=== PATIENT | male | born 1950 | race African-American/Black ===

== ENCOUNTER 2024-09-04 14:16 | Inpatient (IN) ==
--- NOTE | 2024-09-04 14:41 | Emergency Department Note ---
Impression & Plan Near syncope, Dizziness, Chills, Tachycardia ED Provider Note NAME: LUIS TITUS AGE: 73 SEX: M : 1950 ARRIVES VIA: Ambulance INFORMANT: [Patient][ems, nursing] ED PROVIDER(S): [Mikey Kruse MD] CHIEF COMPLAINT: Chills, near syncope HISTORY OF PRESENT ILLNESS: The patient is a 73-year-old male who felt fine this morning. He was at a store shopping and had chills and felt very faint. He was helped by staff, he never lost consciousness. No trauma or fall. He noticed some nausea. He was brought by ambulance for evaluation. There was no chest pain prehospital, there have been no episodes of cough or congestion. He has not had urinary complaints. He has not had rash. No abdominal pain or chest pain. No palpitations. No recent sick contacts. PMHx/PSHx/Social Hx: See Below PHYSICAL EXAM: GENERAL: Patient is in no acute distress. HEENT: No acute trauma, normocephalic atraumatic, mucous membranes moist, no nasal congestion. NECK: No stridor, no adenopathy, no meningismus, trachea is midline. LUNGS: Clear to auscultation bilaterally, no wheeze, no rhonchi, breath sounds equal. Breath sounds diminished bilaterally HEART: Without murmurs gallops or rubs, regular rate and rhythm. ABDOMEN: Soft, nontender, no peritonitis. EXTREMITIES: No cyanosis, full range of motion of all the joints without pain or difficulty. NEUROLOGIC: Oriented x 3, no acute motor or sensory deficits, no focal weakness. SKIN: No jaundice, no diaphoresis. DIFFERENTIAL DIAGNOSIS: Sepsis or bacteremia, viral illness, UTI, dehydration, dysrhythmia, among others. EMERGENCY DEPARTMENT PROCEDURES: MEDICAL DECISION MAKING: There is no leukocytosis or worrisome anemia. There is a normal platelet count. No coagulopathy. There is some elevation to the creatinine 1.65, this could be consistent with dehydration or some chronic renal insufficiency. No old values available for comparison. Lactic acid level was not elevated making sepsis less likely. Magnesium was somewhat low at 1.6. No worrisome liver enzyme elevation. ECG initially showed a sinus rhythm with a rate of 80. No ST elevation. Cardiac enzyme testing x 1 is not consistent with acute cardiac injury. Repeat troponin value is pending. Procalcitonin level was elevated consistent with potential bacterial infection. Urinalysis did not show findings of infection. Respiratory bio fire was negative. Chest x-ray did not show pneumonia. Chest CT did not show PE or pneumonia. Repeat ECG showed a sinus tachycardia, no obvious ischemia. The patient became tachycardic during his stay, he complained of dizziness when he tried to sit up. At 1 point, he had some left-sided chest pain. Patient was given 1.5 L of IV saline. He received IV Zofran, IV morphine, IV magnesium and IV cefepime. At this point, the cause for his complaints is unclear. Bacteremia is a consideration, dysrhythmia is a consideration. Given the circumstances and his complaints, given his persistent tachycardia and complaints of dizziness, hospitalization is indicated for further workup. I spoke with the patient and case management, the on-call hospitalist was consulted. Prior/Outside records/notes reviewed: Today's EMS notes describing his presentation and transport to this hospital. ECG per my interpretation: Indication was near syncope. The ECG shows a sinus rhythm with a first-degree AV block. The rate is 81. There is no acute ST ovation, no PVCs but the QTc is 367. Repeat ECG per my interpretation: Indication was tachycardia. The ECG shows what appears to be a sinus tachycardia with a first-degree AV block. The rate was 112. There is no ST elevation, no PVCs. The QTc was 374. Compared to the earlier ECG, the rate has increased by about 40 bpm. Repeat ECG per my interpretation: Indication was chest pain. The ECG shows a sinus tachycardia with a first-degree AV block. The rate was 109. There was no ST elevation, no PVCs. The QTc was 404. Continuous Cardiac Monitoring per my interpretation: An order was placed for continuous cardiac monitoring. The monitor shows a rate of 85 with sinus rhythm with a first-degree block. Imaging/x-ray results per my interpretation: Chest x-ray does not show pneumonia or CHF. Chronic Medical/Social conditions affecting care: Advanced age Care/Management discussed with: Case management, the on-call hospitalist. Level of care consideration(s): After review of the information above and other included data: --I believe the patient requires escalation of care to admission DISPOSITION: Admission Past Med/Surg History Problem List (Updated 09/04/24 @ 19:15 by Mikey Kruse MD) Tachycardia (Acute) Chills (Acute) Dizziness (Acute) Near syncope (Acute) Bladder neck contracture Renal lesion Prostate cancer screening (Chronic) Smell and taste disorder Microsmia Insomnia HLD (hyperlipidemia) Asthma HTN (hypertension) Vitamin D deficiency Narcolepsy Medical History Atrial fibrillation Surgical History (Updated 04/11/24 @ 09:57 by Mari Aponte LPN) Hx of appendectomy Family History (Updated 04/11/24 @ 10:00 by Mari Aponte LPN) Father Lung cancer Mother Liver cancer Sister Diabetes Denies family history of Sudden Ovarian cancer Prostate cancer Heart disease Breast cancer Social History Smoking Status: Never smoker Second Hand Exposure: No; Do You Dip or Chew Tobacco: No; Hx Alcohol Use: Yes Alcohol Intake Frequency: Monthly or Less Hx Substance Use: No Preferred Language: Syriac Beliefs That Will Affect Care: None marital status: / Current Living Situation: Alone current occupational status: retired How many Children do You have: 5 Feels Safe at Home: Yes Childhood Exposure to Second-Hand Smoke: No Diet: regular caffeine: Yes Dental Care, Regularly: Yes Physical Activity Frequency: Daily Seatbelt Use: always Sunscreen Use: Yes Assistive Devices: Denture - Upper, Denture - Lower and Glasses Allergies Allergies Allergy/AdvReac Type Severity Reaction Status Date / Time No Known Allergies Allergy Verified 08/19/24 10:35 Home Meds Home Medications Medication Instructions Recorded Confirmed loratadine 10 mg capsule (Allergy 10 mg PO UD 09/04/24 09/04/24 Relief (loratadine)) solriamfetol 75 mg tablet 75 mg PO UD 09/04/24 09/04/24 Previous Rx's Medication Instructions Recorded apixaban 5 mg tablet (Eliquis) 5 mg PO BID 90 days #180 tabs 04/11/24 ergocalciferol (vitamin D2) 1,250 1,250 mcg PO Q7D 90 days #13 caps 04/11/24 mcg (50,000 unit) capsule lisinopril 10 mg tablet 10 mg PO DAILY #90 tabs 04/11/24 mometasone-formoterol HFA 50 mcg-5 2 puff inhalation Q12H 90 days #39 04/11/24 mcg/actuation aerosol inhaler grams (Dulera) montelukast 10 mg tablet 10 mg PO DAILY #90 tabs 04/11/24 pravastatin 20 mg tablet 20 mg PO DAILY #90 tabs 04/11/24 trazodone 100 mg tablet 100 mg PO DAILY #90 tabs 04/11/24 fluticasone propionate 50 2 spray intranasal DAILY #16 grams 07/31/24 mcg/actuation nasal spray,suspension (Flonase Allergy Relief) Results & Data (ED) Vital Signs Vital Signs - 24 hr 09/04/24 14:31 09/04/24 14:31 09/04/24 14:31 Temperature Temperature Source Pulse Rate Pulse Rate [Apical] Pulse Rate from SpO2 Sensor Pulse Rhythm Pulse Rhythm [Apical] Pulse Strength Pulse Strength [Apical] Respiratory Rate Respiratory Effort / Characteristics Respiratory Depth Respiratory Pattern Blood Pressure 121/81 121/81 121/81 Blood Pressure [Right Arm] Blood Pressure Mean 91 91 91 Blood Pressure Mean [Right Arm] Blood Pressure Position [Right Arm] Pulse Oximetry Oxygen Delivery Method Sepsis Recent Fever Within 48 Hours Sepsis New/Unexplained Change in Mental Status Sepsis Action Taken by Nursing 09/04/24 14:31 09/04/24 14:31 09/04/24 14:31 Temperature Temperature Source Pulse Rate Pulse Rate [Apical] Pulse Rate from SpO2 Sensor Pulse Rhythm Pulse Rhythm [Apical] Pulse Strength Pulse Strength [Apical] Respiratory Rate Respiratory Effort / Characteristics Respiratory Depth Respiratory Pattern Blood Pressure 121/81 121/81 121/81 Blood Pressure [Right Arm] Blood Pressure Mean 91 91 91 Blood Pressure Mean [Right Arm] Blood Pressure Position [Right Arm] Pulse Oximetry Oxygen Delivery Method Sepsis Recent Fever Within 48 Hours Sepsis New/Unexplained Change in Mental Status Sepsis Action Taken by Nursing 09/04/24 14:31 09/04/24 14:31 09/04/24 14:31 Temperature Temperature Source Pulse Rate Pulse Rate [Apical] Pulse Rate from SpO2 Sensor Pulse Rhythm Pulse Rhythm [Apical] Pulse Strength Pulse Strength [Apical] Respiratory Rate Respiratory Effort / Characteristics Respiratory Depth Respiratory Pattern Blood Pressure 121/81 121/81 121/81 Blood Pressure [Right Arm] Blood Pressure Mean 91 91 91 Blood Pressure Mean [Right Arm] Blood Pressure Position [Right Arm] Pulse Oximetry Oxygen Delivery Method Sepsis Recent Fever Within 48 Hours Sepsis New/Unexplained Change in Mental Status Sepsis Action Taken by Nursing 09/04/24 14:39 09/04/24 14:45 09/04/24 14:45 Temperature 36.8 C 36.8 C Temperature Source Oral Oral Pulse Rate 85 89 Pulse Rate [Apical] 89 Pulse Rate from SpO2 Sensor 84 Pulse Rhythm Regular Pulse Rhythm [Apical] Regular Pulse Strength Normal Pulse Strength [Apical] Normal Respiratory Rate 26 H 18 18 Respiratory Effort / Characteristics Non-Labored Spontaneous Non-Labored Spontaneous Respiratory Depth Normal Normal Respiratory Pattern Regular Regular Blood Pressure 122/80 Blood Pressure [Right Arm] 122/80 Blood Pressure Mean 94 Blood Pressure Mean [Right Arm] 94 Blood Pressure Position [Right Arm] Semi-fowlers Pulse Oximetry 95 94 94 Oxygen Delivery Method Room Air Room Air Sepsis Recent Fever Within 48 Hours No Sepsis New/Unexplained Change in Mental Status Yes Sepsis Action Taken by Nursing No Action Required 09/04/24 14:45 09/04/24 14:45 09/04/24 14:51 Temperature Temperature Source Pulse Rate 89 63 90 Pulse Rate [Apical] Pulse Rate from SpO2 Sensor 84 90 Pulse Rhythm Regular Pulse Rhythm [Apical] Pulse Strength Pulse Strength [Apical] Respiratory Rate 18 25 H 27 H Respiratory Effort / Characteristics Respiratory Depth Respiratory Pattern Blood Pressure Blood Pressure [Right Arm] Blood Pressure Mean Blood Pressure Mean [Right Arm] Blood Pressure Position [Right Arm] Pulse Oximetry 94 98 97 Oxygen Delivery Method Room Air Sepsis Recent Fever Within 48 Hours Sepsis New/Unexplained Change in Mental Status Sepsis Action Taken by Nursing 09/04/24 15:09 09/04/24 15:18 09/04/24 15:30 Temperature Temperature Source Pulse Rate 95 H 95 H Pulse Rate [Apical] Pulse Rate from SpO2 Sensor 95 H Pulse Rhythm Pulse Rhythm [Apical] Pulse Strength Pulse Strength [Apical] Respiratory Rate 26 H 24 Respiratory Effort / Characteristics Respiratory Depth Respiratory Pattern Blood Pressure 158/109 H Blood Pressure [Right Arm] Blood Pressure Mean 127 Blood Pressure Mean [Right Arm] Blood Pressure Position [Right Arm] Pulse Oximetry 96 Oxygen Delivery Method Sepsis Recent Fever Within 48 Hours Sepsis New/Unexplained Change in Mental Status Sepsis Action Taken by Nursing 09/04/24 15:30 09/04/24 15:30 09/04/24 15:30 Temperature Temperature Source Pulse Rate Pulse Rate [Apical] Pulse Rate from SpO2 Sensor Pulse Rhythm Pulse Rhythm [Apical] Pulse Strength Pulse Strength [Apical] Respiratory Rate Respiratory Effort / Characteristics Respiratory Depth Respiratory Pattern Blood Pressure 158/109 H 158/109 H 158/109 H Blood Pressure [Right Arm] Blood Pressure Mean 127 127 127 Blood Pressure Mean [Right Arm] Blood Pressure Position [Right Arm] Pulse Oximetry Oxygen Delivery Method Sepsis Recent Fever Within 48 Hours Sepsis New/Unexplained Change in Mental Status Sepsis Action Taken by Nursing 09/04/24 15:30 09/04/24 15:30 09/04/24 15:33 Temperature Temperature Source Pulse Rate 103 H Pulse Rate [Apical] Pulse Rate from SpO2 Sensor 104 H Pulse Rhythm Pulse Rhythm [Apical] Pulse Strength Pulse Strength [Apical] Respiratory Rate 27 H Respiratory Effort / Characteristics Respiratory Depth Respiratory Pattern Blood Pressure 158/109 H 158/109 H Blood Pressure [Right Arm] Blood Pressure Mean 127 127 Blood Pressure Mean [Right Arm] Blood Pressure Position [Right Arm] Pulse Oximetry 100 Oxygen Delivery Method Sepsis Recent Fever Within 48 Hours Sepsis New/Unexplained Change in Mental Status Sepsis Action Taken by Nursing 09/04/24 15:51 09/04/24 16:00 09/04/24 16:00 Temperature Temperature Source Pulse Rate 117 H 110 H Pulse Rate [Apical] Pulse Rate from SpO2 Sensor 116 H 110 H Pulse Rhythm Pulse Rhythm [Apical] Pulse Strength Pulse Strength [Apical] Respiratory Rate 31 H 25 H Respiratory Effort / Characteristics Respiratory Depth Respiratory Pattern Blood Pressure 152/109 H Blood Pressure [Right Arm] Blood Pressure Mean 130 Blood Pressure Mean [Right Arm] Blood Pressure Position [Right Arm] Pulse Oximetry 97 98 Oxygen Delivery Method Sepsis Recent Fever Within 48 Hours Sepsis New/Unexplained Change in Mental Status Sepsis Action Taken by Nursing 09/04/24 16:00 09/04/24 16:00 09/04/24 16:00 Temperature Temperature Source Pulse Rate Pulse Rate [Apical] Pulse Rate from SpO2 Sensor Pulse Rhythm Pulse Rhythm [Apical] Pulse Strength Pulse Strength [Apical] Respiratory Rate Respiratory Effort / Characteristics Respiratory Depth Respiratory Pattern Blood Pressure 152/109 H 152/109 H 152/109 H Blood Pressure [Right Arm] Blood Pressure Mean 130 130 130 Blood Pressure Mean [Right Arm] Blood Pressure Position [Right Arm] Pulse Oximetry Oxygen Delivery Method Sepsis Recent Fever Within 48 Hours Sepsis New/Unexplained Change in Mental Status Sepsis Action Taken by Nursing 09/04/24 16:00 09/04/24 16:00 09/04/24 16:00 Temperature Temperature Source Pulse Rate Pulse Rate [Apical] Pulse Rate from SpO2 Sensor Pulse Rhythm Pulse Rhythm [Apical] Pulse Strength Pulse Strength [Apical] Respiratory Rate Respiratory Effort / Characteristics Respiratory Depth Respiratory Pattern Blood Pressure 152/109 H 152/109 H 152/109 H Blood Pressure [Right Arm] Blood Pressure Mean 130 130 130 Blood Pressure Mean [Right Arm] Blood Pressure Position [Right Arm] Pulse Oximetry Oxygen Delivery Method Sepsis Recent Fever Within 48 Hours Sepsis New/Unexplained Change in Mental Status Sepsis Action Taken by Nursing 09/04/24 16:00 09/04/24 16:00 09/04/24 16:00 Temperature Temperature Source Pulse Rate Pulse Rate [Apical] Pulse Rate from SpO2 Sensor Pulse Rhythm Pulse Rhythm [Apical] Pulse Strength Pulse Strength [Apical] Respiratory Rate Respiratory Effort / Characteristics Respiratory Depth Respiratory Pattern Blood Pressure 152/109 H 152/109 H 152/109 H Blood Pressure [Right Arm] Blood Pressure Mean 130 130 130 Blood Pressure Mean [Right Arm] Blood Pressure Position [Right Arm] Pulse Oximetry Oxygen Delivery Method Sepsis Recent Fever Within 48 Hours Sepsis New/Unexplained Change in Mental Status Sepsis Action Taken by Nursing 09/04/24 16:11 09/04/24 16:12 09/04/24 16:24 Temperature Temperature Source Pulse Rate 112 H 114 H 114 H Pulse Rate [Apical] Pulse Rate from SpO2 Sensor 114 H 114 H Pulse Rhythm Pulse Rhythm [Apical] Pulse Strength Pulse Strength [Apical] Respiratory Rate 25 H 20 Respiratory Effort / Characteristics Respiratory Depth Respiratory Pattern Blood Pressure Blood Pressure [Right Arm] Blood Pressure Mean Blood Pressure Mean [Right Arm] Blood Pressure Position [Right Arm] Pulse Oximetry 97 98 Oxygen Delivery Method Sepsis Recent Fever Within 48 Hours Sepsis New/Unexplained Change in Mental Status Sepsis Action Taken by Nursing 09/04/24 16:27 09/04/24 16:30 09/04/24 16:30 Temperature Temperature Source Pulse Rate 119 H Pulse Rate [Apical] Pulse Rate from SpO2 Sensor 118 H Pulse Rhythm Pulse Rhythm [Apical] Pulse Strength Pulse Strength [Apical] Respiratory Rate 25 H Respiratory Effort / Characteristics Respiratory Depth Respiratory Pattern Blood Pressure 150/88 H 150/88 H Blood Pressure [Right Arm] Blood Pressure Mean 92 92 Blood Pressure Mean [Right Arm] Blood Pressure Position [Right Arm] Pulse Oximetry 98 Oxygen Delivery Method Sepsis Recent Fever Within 48 Hours Sepsis New/Unexplained Change in Mental Status Sepsis Action Taken by Nursing 09/04/24 16:30 09/04/24 16:30 09/04/24 16:30 Temperature Temperature Source Pulse Rate Pulse Rate [Apical] Pulse Rate from SpO2 Sensor Pulse Rhythm Pulse Rhythm [Apical] Pulse Strength Pulse Strength [Apical] Respiratory Rate Respiratory Effort / Characteristics Respiratory Depth Respiratory Pattern Blood Pressure 150/88 H 150/88 H 150/88 H Blood Pressure [Right Arm] Blood Pressure Mean 92 92 92 Blood Pressure Mean [Right Arm] Blood Pressure Position [Right Arm] Pulse Oximetry Oxygen Delivery Method Sepsis Recent Fever Within 48 Hours Sepsis New/Unexplained Change in Mental Status Sepsis Action Taken by Nursing 09/04/24 16:30 09/04/24 16:30 09/04/24 16:30 Temperature Temperature Source Pulse Rate Pulse Rate [Apical] Pulse Rate from SpO2 Sensor Pulse Rhythm Pulse Rhythm [Apical] Pulse Strength Pulse Strength [Apical] Respiratory Rate Respiratory Effort / Characteristics Respiratory Depth Respiratory Pattern Blood Pressure 150/88 H 150/88 H 150/88 H Blood Pressure [Right Arm] Blood Pressure Mean 92 92 92 Blood Pressure Mean [Right Arm] Blood Pressure Position [Right Arm] Pulse Oximetry Oxygen Delivery Method Sepsis Recent Fever Within 48 Hours Sepsis New/Unexplained Change in Mental Status Sepsis Action Taken by Nursing 09/04/24 16:45 09/04/24 16:51 09/04/24 16:57 Temperature Temperature Source Pulse Rate 118 H 119 H 115 H Pulse Rate [Apical] Pulse Rate from SpO2 Sensor 118 H 119 H 115 H Pulse Rhythm Pulse Rhythm [Apical] Pulse Strength Pulse Strength [Apical] Respiratory Rate 27 H 23 28 H Respiratory Effort / Characteristics Respiratory Depth Respiratory Pattern Blood Pressure Blood Pressure [Right Arm] Blood Pressure Mean Blood Pressure Mean [Right Arm] Blood Pressure Position [Right Arm] Pulse Oximetry 98 98 97 Oxygen Delivery Method Sepsis Recent Fever Within 48 Hours Sepsis New/Unexplained Change in Mental Status Sepsis Action Taken by Nursing 09/04/24 17:00 09/04/24 17:18 09/04/24 17:21 Temperature Temperature Source Pulse Rate 117 H 113 H Pulse Rate [Apical] Pulse Rate from SpO2 Sensor 120 H 113 H Pulse Rhythm Pulse Rhythm [Apical] Pulse Strength Pulse Strength [Apical] Respiratory Rate 17 29 H Respiratory Effort / Characteristics Respiratory Depth Respiratory Pattern Blood Pressure 123/94 123/94 131/112 H Blood Pressure [Right Arm] Blood Pressure Mean 99 103 118 Blood Pressure Mean [Right Arm] Blood Pressure Position [Right Arm] Pulse Oximetry 90 96 Oxygen Delivery Method Sepsis Recent Fever Within 48 Hours Sepsis New/Unexplained Change in Mental Status Sepsis Action Taken by Long Term Medications Current Medication List: was personally reviewed by me Laboratory Data Attestation: I reviewed the patient's lab results. 09/04/24 15:02 09/04/24 15:02 Lab Results 09/04/24 09/04/24 Range/Units 15:02 16:01 WBC 6.63 (4.8-10.8) K/ul RBC 4.43 L (4.70-6.10) M/uL Hgb 13.7 L (14.0-18.0) g/dl Hct 40.1 L (42.0-52.0) % MCV 90.5 (80.0-100.0) fL MCH 30.9 (25.0-34.0) pg MCHC 34.2 (32.0-36.0) g/dL RDW Std Deviation 40.3 (36.4-46.3) fL RDW Coeff of Semaj 12.3 (11.5-14.5) % Plt Count 159 (130-400) K/uL MPV 10.1 (9.4-12.4) fL Immature Gran % (Auto) 0.8 % Neut % (Auto) 92.0 % Lymph % (Auto) 5.1 % Sullivan % (Auto) 1.2 % Eos % (Auto) 0.6 % Baso % (Auto) 0.3 % Neut # (Auto) 6.10 (1.40-6.50) K/uL Lymph # (Auto) 0.34 L (1.20-3.40) K/uL Sullivan # (Auto) 0.08 L (0.11-0.59) K/uL Eos # (Auto) 0.04 (0.00-0.50) K/uL Baso # (Auto) 0.02 (0.00-0.20) K/uL Immature Gran # (Auto) 0.05 (0.01-0.20) K/uL PT 11.3 (9.0-12.0) Seconds INR 1.0 (0.9-1.1) APTT 23 (21-31) Seconds PTT Ratio 0.9 Sodium 139 (136-145) mmol/L Potassium 4.5 (3.5-5.1) mmol/L Chloride 103 (98-107) mmol/L Carbon Dioxide 29 (21-32) mmol/L Anion Gap 7 (3-11) BUN 20 (6-23) mg/dl Creatinine 1.65 H (0.6-1.4) mg/dl Est Cr Clr Drug Dosing 45.4 ml/min eGFR 43.57 BUN/Creatinine Ratio 12.1 (10-20) Glucose 107 H (70-99(Fasting)) mg/dl Lactate 1.4 (0.4-2.0) mmol/L Calcium 9.5 (8.6-10.3) mg/dl Magnesium 1.6 L (1.7-2.4) mg/dl Total Bilirubin 1.1 H (0.2-1.0) mg/dl Direct Bilirubin 0.3 H (0-0.2) mg/dl AST 18 (13-39) U/L ALT 17 (7-52) U/L Alkaline Phosphatase 78 (34-104) U/L Troponin I High Sens 2.9 (0-20) pg/ml Total Protein 7.2 (6.0-8.3) gm/dl Albumin 4.4 (3.4-5.0) gm/dl Procalcitonin 1.09 H (0-0.5) ng/ml Urine Color Yellow Urine Appearance Clear (Clear) Urine pH 5.5 (4.5-7.5) Ur Specific [place] 1.014 (1.000-1.030) Urine Protein 1+ H (Negative) Urine Glucose (UA) Negative (Negative) Urine Ketones Trace H (Negative) Urine Blood Negative (Negative) Urine Nitrite Negative (Negative) Urine Bilirubin Negative (Negative) Urine Urobilinogen Negative (Negative) Ur Leukocyte Esterase Negative (Negative) Urine WBC (Auto) 0-5 (0-5) /hpf Urine RBC (Auto) 6-10 H (0-2) /hpf U Hyaline Cast (Auto) 0-2 (0-2) /lpf U Epithel Cells (Auto) 0-2 (0-2) /hpf Urine Bacteria (Auto) None Seen (None Seen) Urine Sperm Present A (None Prsent) Adenovirus (PCR) Not Detected (NotDetected) B. pertussis DNA (PCR) Not Detected (NotDetected) B.parapertussis DNA PCR Not Detected (NotDetected) C. pneumoniae DNA (PCR) Not Detected (NotDetected) Coronavirus OC43 (PCR) Not Detected (NotDetected) Coronavirus HKU1 (PCR) Not Detected (NotDetected) Coronavirus 229E (PCR) Not Detected (NotDetected) SARS-CoV-2 (PCR) Not Detected (NotDetected) Coronavirus NL63 (PCR) Not Detected (NotDetected) Human Metapneumovir PCR Not Detected (NotDetected) Influenza Type A (PCR) Not Detected (NotDetected) Influenza Type B (PCR) Not Detected (NotDetected) M. pneumoniae (PCR) Not Detected (NotDetected) Parainfluenza 1 (PCR) Not Detected (NotDetected) Parainfluenza 2 (PCR) Not Detected (NotDetected) Parainfluenza 3 (PCR) Not Detected (NotDetected) Parainfluenza 4 (PCR) Not Detected (NotDetected) RSV (PCR) Not Detected (NotDetected) Entero/Rhino (PCR) Not Detected (NotDetected) Administered Medications Discontinued Medications Sodium Chloride (Nss) 1,000 mls @ 999 mls/hr IV .Q1H1M CHAMP Stop: 09/04/24 15:45 Last Infusion: 09/04/24 16:18 Dose: Infused Documented By: Admin: 09/04/24 15:06 Dose: 999 mls/hr Documented By: Cefepime HCl (Maxipime 2000mg) 2,000 mg in 20 mls @ 5 mls/min IV NOW STA; Protocol Stop: 09/04/24 14:41 Last Admin: 09/04/24 15:45 Dose: 5 mls/min Documented By: DUY Magnesium Sulfate/Dextrose (Magnesium Sulfate / D5w) 1 gm in 100 mls @ 100 mls/hr IV NOW STA Stop: 09/04/24 16:56 Last Admin: 09/04/24 16:05 Dose: 100 mls/hr Documented By: DUY Ioversol (Optiray 320 125ml) 78 ml IV ONCE ONE Stop: 09/04/24 17:57 Last Admin: 09/04/24 17:57 Dose: 78 ml Documented By: PLW Ondansetron HCl (Ondansetron Inj 2 Mg/Ml 2 Ml Vial) 4 mg IV NOW STA Stop: 09/04/24 14:39 Last Admin: 09/04/24 15:06 Dose: 4 mg Documented By: MSG Imaging Data Radiologist's Impression: Chest X-Ray 09/04/24 14:38 XR chest 1V portable CLINICAL HISTORY: Sepsis COMPARISON STUDY: None FINDINGS: Heart size and pulmonary vasculature are normal. No effusion, consolidation, or pneumothorax. IMPRESSION: No acute findings. ACT 112: Negative or not required by law. Electronically signed by: Juwan Babcock M.D. 09/04/2024 2:51 PM Chest CTA 09/04/24 17:37 EXAM: CT Angiography Chest With Intravenous Contrast INDICATION: Sudden onset of dizziness, chills and lightheadedness. TECHNIQUE: Axial computed tomographic angiography images of the chest with intravenous contrast. Sagittal and coronal reformatted images were created and reviewed. This CT exam was performed using one or more of the following dose reduction techniques: automated exposure control, adjustment of the mA and/or kV according to patient size, and/or use of iterative reconstruction technique. MIP reconstructed images were created and reviewed. CONTRAST: 78ml of Optiray 320 was administered intravenously. COMPARISON: No relevant prior studies available. FINDINGS: Pulmonary arteries: No abnormality noted. No pulmonary embolism. Aorta: No acute change noted. No thoracic aortic aneurysm or dissection. Lungs and pleural spaces: No abnormality noted. No mass. No consolidation. No significant effusion. No pneumothorax. Heart: No abnormality noted. No cardiomegaly. No significant pericardial effusion. No evidence of RV dysfunction. Thyroid: There is a 1.4 x 1.0 cm right thyroid nodule. No further assessment required. Bones/joints: No acute or atypical chronic changes. Soft tissues: No abnormality noted. Lymph nodes: No abnormality noted. No enlarged lymph nodes. Kidneys and ureters: Simple bilateral renal cysts noted. No follow-up necessary. No stones or hydronephrosis. There is mild symmetrical stranding around the visualized upper portion of each kidney. No visible urinary gas. IMPRESSION: 1. No pulmonary embolism or aortic dissection. 2. No pulmonary infiltrate or pleural effusion. 3. There is mild symmetrical stranding about the upper portion of both kidneys. Correlate with urinalysis for cy pyelonephritis. ACT 112: N/A Electronically signed by Elza Trevino 09-04-2024 6:13 PM Discharge Plan Visit Data Chief Complaint: Syncope (Near Syncope) Stated Complaint: syncope ED Provider: Mikey Kruse Discharge Problem: Near syncope, Dizziness, Chills, Tachycardia Patient Disposition: Admitted As Inpatient Condition: Fair Forms Stand Alone Forms: My [facility] Prescriptions Prescriptions: No Action Eliquis 5 mg tablet 5 mg PO BID 90 Days Qty: 180 3RF ergocalciferol (vitamin D2) 1,250 mcg (50,000 unit) capsule 1,250 mcg PO Q7D 90 Days Qty: 13 3RF lisinopril 10 mg tablet 10 mg PO DAILY Qty: 90 3RF Dulera 50-5 mcg/actuation HFA aerosol inhaler 2 puff inhalation Q12H 90 Days Qty: 39 3RF montelukast 10 mg tablet 10 mg PO DAILY Qty: 90 3RF pravastatin 20 mg tablet 20 mg PO DAILY Qty: 90 3RF trazodone 100 mg tablet 100 mg PO DAILY Qty: 90 3RF fluticasone propionate [Flonase Allergy Relief] 50 mcg/actuation spray,suspension 2 spray intranasal DAILY Qty: 16 1RF Rx Instructions: administer into each nostril 2 puffs each day for six weeks. Allergy Relief (loratadine) 10 mg capsule 10 mg PO UD Rx Instructions: 10 mg po daily. pt isnt sure if this medication solriamfetol 75 mg tablet 75 mg PO UD Rx Instructions: 75 mg po daily. Per pt, he ran out and couldnt get a refill Referrals Referrals: Gabriele Adams, [Primary Care Provider] -
--- NOTE | 2024-09-04 14:52 | XRay Report ---
XR chest 1V portable CLINICAL HISTORY: Sepsis COMPARISON STUDY: None FINDINGS: Heart size and pulmonary vasculature are normal. No effusion, consolidation, or pneumothora x. IMPRESSION: No acute findings. ACT 112: Negative or not required by law. Electronically signed by: Juwan Babcock M.D. 09/04/2024 2:51 PM
[2024-09-04] MEDS: SODIUM CHLORIDE 0.9% 1,000 ML IV SCH (15:06)
[2024-09-04] MEDS: ONDANSETRON INJ 2 MG/ML 2 ML VIAL IV STA (15:06)
[2024-09-04 15:32] LABS: Hematocrit (blood only) 40.1 % (42.0-52.0); Hemoglobin 13.7 g/dl (14.0-18.0); Mean Corpuscular Hemoglobin 30.9 pg (25.0-34.0); Mean Corpuscular Hgb Conc 34.2 g/dL (32.0-36.0); Mean Corpuscular Volume 90.5 fL (80.0-100.0); Mean Platelet Volume 10.1 fL (9.4-12.4); Platelet Count 159 K/uL (130-400); RDW Coefficient of Variation 12.3 % (11.5-14.5); RDW Standard Deviation 40.3 fL (36.4-46.3); Red Blood Count 4.43 M/uL (4.70-6.10); White Blood Count 6.63 K/ul (4.8-10.8)
[2024-09-04] MEDS: CEFEPIME 2000MG 2,000 MG/20 ML SYR IV STA (15:45)
[2024-09-04 15:54] LABS: Albumin Level 4.4 gm/dl (3.4-5.0); BUN Creatinine Ratio 12.1 (10-20); Basophils # (auto) 0.02 K/uL (0.00-0.20); Basophils % (auto) 0.3 %; Bilirubin Direct 0.3 mg/dl (0-0.2); Bilirubin,Total 1.1 mg/dl (0.2-1.0); Calcium 9.5 mg/dl (8.6-10.3); Creatinine Clr Calc Pharmacy 45.4 ml/min; Eosinophils # (auto) 0.04 K/uL (0.00-0.50); Eosinophils % (auto) 0.6 %; Immature Granulocytes # (auto) 0.05 K/uL (0.01-0.20); Immature Granulocytes % (auto) 0.8 %; Lymphocytes # (auto) 0.34 K/uL (1.20-3.40); Lymphocytes % (auto) 5.1 %; Magnesium 1.6 mg/dl (1.7-2.4); Monocytes # (auto) 0.08 K/uL (0.11-0.59); Monocytes % (auto) 1.2 %; Potassium 4.5 mmol/L (3.5-5.1); Total Protein 7.2 gm/dl (6.0-8.3)
[2024-09-04 16:00] LABS: Troponin I High Sensitivity 2.9 pg/ml (0-20)
[2024-09-04 16:02] LABS: Partial Thromboplastin Ratio 0.9; Partial Thromboplastin Time 23 Seconds (21-31); Prothrombin Time 11.3 Seconds (9.0-12.0)
[2024-09-04] MEDS: MAGNESIUM SULFATE / D5W 1 GM/100 ML BAG IV STA (16:05)
[2024-09-04 16:30] LABS: Adenovirus PCR Not Detected (NotDetected); Bordetella parapertussis PCR Not Detected (NotDetected); Bordetella pertussis PCR Not Detected (NotDetected); Chlamydia pneumoniae PCR Not Detected (NotDetected); Coronavirus 229E PCR Not Detected (NotDetected); Coronavirus CoV-2 (COVID19)PCR Not Detected (NotDetected); Coronavirus HKU1 PCR Not Detected (NotDetected); Coronavirus NL63 PCR Not Detected (NotDetected); Coronavirus OC43PCR Not Detected (NotDetected); Human Metapneumovirus PCR Not Detected (NotDetected); Influenza A PCR Not Detected (NotDetected); Influenza B PCR Not Detected (NotDetected); Mycoplasma pneumoniae PCR Not Detected (NotDetected); Parainfluenza Virus 1 PCR Not Detected (NotDetected); Parainfluenza Virus 2 PCR Not Detected (NotDetected); Parainfluenza Virus 3 PCR Not Detected (NotDetected); Parainfluenza Virus 4 PCR Not Detected (NotDetected); Respiratory Syncytial VirusPCR Not Detected (NotDetected); Rhinovirus/Enterovirus PCR Not Detected (NotDetected)
[2024-09-04 17:04] LABS: Appearance Urine Clear (Clear); Bacteria Urine Automated None Seen (None Seen); Bilirubin Urine Negative (Negative); Blood Urine Negative (Negative); Cast Urine Automated 0-2 /lpf (0-2); Color Urine Yellow; Epithelial Cell Urine Auto 0-2 /hpf (0-2); Glucose Urine UA Negative (Negative); Ketones Urine Trace (Negative); Leukocyte Esterase Urine Negative (Negative); Nitrite Urine Negative (Negative); Protein Urine 1+ (Negative); Specific Gravity Urine 1.014 (1.000-1.030); Sperm Urine Present (None Prsent); Urobilinogen Urine Negative (Negative); WBC Urine Automated 0-5 /hpf (0-5); pH Urine 5.5 (4.5-7.5)
[2024-09-04] MEDS: OPTIRAY 320 125ml IV ONE (17:57)
--- NOTE | 2024-09-04 18:13 | CT Scan Report ---
EXAM: CT Angiography Chest With Intravenous Contrast INDICATION: Sudden onset of dizziness, chills and lightheadedness. TECHNIQUE: Axial computed tomographic angiography images of the chest with intravenous contrast. Sagittal and coronal reformatted images were created and reviewed. This CT exam was performed using one or more of the following dose reduction techniques: automated exposure control, adjustment of the mA and/or kV according to patient size, and/or use of iterative reconstruction technique. MIP reconstructed images were created and reviewed. CONTRAST: 78ml of Optiray 320 was administered intravenously. COMPARISON: No relevant prior studies available. FINDINGS: Pulmonary arteries: No abnormality noted. No pulmonary embolism. Aorta: No acute change noted. No thoracic aortic aneurysm or dissection. Lungs and pleural spaces: No abnormality noted. No mass. No consolidation. No significant effusion. No pneumothorax. Heart: No abnormality noted. No cardiomegaly. No significant pericardial effusion. No evidence of RV dysfunction. Thyroid: There is a 1.4 x 1.0 cm right thyroid nodule. No further assessment required. Bones/joints: No acute or atypical chronic changes. Soft tissues: No abnormality noted. Lymph nodes: No abnormality noted. No enlarged lymph nodes. Kidneys and ureters: Simple bilateral renal cysts noted. No follow-up necessary. No stones or hydronephrosis. There is mild symmetrical stranding around the visualized upper portion of each kidney. No visible urinary gas. IMPRESSION: 1. No pulmonary embolism or aortic dissection. 2. No pulmonary infiltrate or pleural effusion. 3. There is mild symmetrical stranding about the upper portion of both kidneys. Correlate with urinalysis for cy pyelonephritis. ACT 112: N/A Electronically signed by Elza Trevino 09-04-2024 6:13 PM
--- NOTE | 2024-09-04 18:39 | History & Physical Report ---
Date of Service September 04, 2024 Assessment & Plan (1) Near syncope: (2) Elevated serum creatinine: (3) Tachycardia: (4) BPH w urinary obs/LUTS: Plan This patient is a 73-year-old male with a history of HTN, asthma, SHANNAN, excessive daytime drowsiness, diet-controlled DM2, insomnia, HLD, allergic rhinitis, BPH, who presents to the ER with acute onset of chills, nausea, emesis and lightheadedness. He reports he was sitting waiting for his car to be serviced at [facility] when the symptoms began. He had to lay himself down on the ground and ambulance was called. Initially in the ER, his heart rate was in the 80s with a first-degree AV block but then he became tachycardic which was sinus. His blood pressures were actually mildly elevated he was afebrile. He did have a cystoscopy 2 days ago for BPH and was prescribed tamsulosin but has not yet started it. He reports he did not take any antibiotics before or after the cystoscopy procedure. He denies any worsening of his current lower urinary tract symptoms-he denies dysuria or hematuria, no abdominal pain. He denies he adache or sore throat, no cough or chest pain but does feel at times like it is hard to breathe. He denies diarrhea, constipation, blood in the stool. He had nausea but no vomiting. He is admitted for further workup for presyncope, possible early sepsis with a /bacteremia source given recent cystoscopy. #Presyncope/chills/sinus tachycardia/nausea/possible early sepsis-no significant ECG abnormalities, trop neg x 2. Afebrile here but may be in early stages of sepsis given chills, tachycardia, some tachypnea. No source of infection but could be bacteremia from recent cystoscopy. 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 Pt has never been told he has CKD that he recalls. 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 Making urine. Mag low at 1.6 on arrival and replaced with 1 gram IV mag in ED -hydrate with IVFs x 2 L -follow BMP -ok to continue home lisinopril -follow Mag level in AM #Paroxysmal atrial fibrillation-in NSR here -continue ELiquis -monitor on tele #HTN/HLD-no acute issues, BPs somewhat elevated -continue home lisinopril, pravastatin #Asthma/allergic rhinitis-no acute issues but some SOB, no wheezing on exam -continue maintenance inhalers, albuterol prn -continue home claritin, flonase #Insomnia/SHANNAN/daytime somnolence -no acute issues, recently ran out of stimulant med -continue trazadone -continue CPAP #Diet-controlled DM2-no acute issues, not on meds at home -check A1C in AM DVT prophylaxis-Eliquis Disposition-admit to PCU History of Present Illness Chief Complaint: Chills, lightheadedness Primary Care Provider: Gabriele Adams, DO This patient is a 73-year-old male with a history of HTN, asthma, SHANNAN, excessive daytime drowsiness, diet-controlled DM2, insomnia, HLD, allergic rhinitis, BPH, who presents to the ER with acute onset of chills, nausea, emesis and lightheadedness. He reports he was sitting waiting for his car to be serviced at [employer] when the symptoms began. He had to lay himself down on the ground and ambulance was called. Initially in the ER, his heart rate was in the 80s with a first-degree AV block but then he became tachycardic which was sinus. His blood pressures were actually mildly elevated he was afebrile. He did have a cystoscopy 2 days ago for BPH and was prescribed tamsulosin but has not yet started it. He reports he did not take any antibiotics before or after the cy stoscopy procedure. He denies any worsening of his current lower urinary tract symptoms-he denies dysuria or hematuria, no abdominal pain. He denies headache or sore throat, no cough or chest pain but does feel at times like it is hard to breathe. He denies diarrhea, constipation, blood in the stool. He had nausea but no vomiting. In the ER, the ECG was without ischemic changes, his magnesium was mildly low and this was replaced. His UA showed RBCs but no other signs of infection. He was given IV cefepime, blood cultures were drawn, procalcitonin was elevated, he was given IV Zofran and IV magnesium. His troponin was negative and his creatinine was elevated at 1.65. He is unaware of any history of CKD. He will be admitted for further workup for presyncope, possible early sepsis w ith a /bacteremia source given recent cystoscopy. Allergies Allergy/AdvReac Type Severity Reaction Status Date / Time No Known Allergies Allergy Verified 08/19/24 10:35 Home Medications Medication Instructions Recorded Confirmed Type apixaban 5 mg tablet (Eliquis) 5 mg PO BID 90 days #180 tabs 04/11/24 09/04/24 Rx ergocalciferol (vitamin D2) 1,250 1,250 mcg PO Q7D 90 days #13 caps 04/11/24 09/04/24 Rx mcg (50,000 unit) capsule lisinopril 10 mg tablet 10 mg PO DAILY #90 tabs 04/11/24 09/04/24 Rx mometasone-formoterol HFA 50 mcg-5 2 puff inhalation Q12H 90 days #39 04/11/24 09/04/24 Rx mcg/actuation aerosol inhaler grams (Dulera) montelukast 10 mg tablet 10 mg PO DAILY #90 tabs 04/11/24 09/04/24 Rx pravastatin 20 mg tablet 20 mg PO DAILY #90 tabs 04/11/24 09/04/24 Rx trazodone 100 mg tablet 100 mg PO DAILY #90 tabs 04/11/24 09/04/24 Rx fluticasone propionate 50 2 spray intranasal DAILY #16 grams 07/31/24 09/04/24 Rx mcg/actuation nasal spray,suspension (Flonase Allergy Relief) loratadine 10 mg capsule (Allergy 10 mg PO UD 09/04/24 09/04/24 History Relief (loratadine)) solriamfetol 75 mg tablet 75 mg PO UD 09/04/24 09/04/24 History Past Med/Surg History Problem List Elevated serum creatinine Tachycardia (Acute) Chills (Acute) Dizziness (Acute) Near syncope (Acute) Bladder neck contracture Renal lesion Prostate cancer screening (Chronic) Smell and taste disorder Microsmia Insomnia HLD (hyperlipidemia) Asthma HTN (hypertension) Vitamin D deficiency Narcolepsy Medical History Atrial fibrillation Surgical History Hx of appendectomy Family History Father Lung cancer Mother Liver cancer Sister Diabetes Denies family history of Sudden Ovarian cancer Prostate cancer Heart disease Breast cancer Social History Smoking Status: Never smoker Second Hand Exposure: No; Do You Dip or Chew Tobacco: No; Hx Alcohol Use: Yes Alcohol Intake Frequency: Monthly or Less Hx Substance Use: No Preferred Language: Eritrean Communication Ability: Effective First Line Supervisor Required: No Beliefs That Will Affect Care: None marital status: / Current Living Situation: Alone current occupational status: retired How many Children do You have: 5 Other Information That Helps Us Care for You: No Feels Safe at Home: Yes Safety Concerns: Feels Safe At This Time Childhood Exposure to Second-Hand Smoke: No Diet: regular caffeine: Yes Dental Care, Regularly: Yes Physical Activity Frequency: Daily Seatbelt Use: always Sunscreen Use: Yes Assistive Devices: Glasses Review of Systems Review of Systems: All systems reviewed & are unremarkable except as noted in HPI & below Physical Exam Constitutional: WD/WN, vitals as above Eyes: PERRL, conjunctivae normal, anicteric sclerae ENMT: external ear and nose normal, oropharynx normal Neck: trachea midline, no thyromegaly Respiratory: normal respiratory effort, lungs clear to auscultation Cardiovascular: RRR, no murmur, no edema Chest (Breasts): Chest: normal inspection of chest Gastrointestinal (Abdomen): normal bowel sounds, soft, nontender, no hepatosplenomegaly Musculoskeletal: Extremities: extremities normal to inspection; no cyanosis and no clubbing Skin: no rashes, warm and dry Neurologic: moves all extremities and awake; no focal motor deficits Psychiatric: A+Ox3, euthymic affect Lymphatic: no lymphedema Results & Data Results & Data Vital Signs (Past 12 Hours) Vital Signs Temp Pulse Pulse Resp BP BP Pulse Ox 09/04/24 17:21 113 H 29 H 131/112 H 96 09/04/24 17:18 117 H 17 123/94 90 09/04/24 17:00 123/94 09/04/24 16:57 115 H 28 H 97 09/04/24 16:51 119 H 23 98 09/04/24 16:45 118 H 27 H 98 09/04/24 16:30 150/88 H 09/04/24 16:30 150/88 H 09/04/24 16:30 150/88 H 09/04/24 16:30 150/88 H 09/04/24 16:30 150/88 H 09/04/24 16:30 150/88 H 09/04/24 16:30 150/88 H 09/04/24 16:30 150/88 H 09/04/24 16:27 119 H 25 H 98 09/04/24 16:24 114 H 20 98 09/04/24 16:12 114 H 25 H 97 09/04/24 16:11 112 H 09/04/24 16:00 152/109 H 09/04/24 16:00 152/109 H 09/04/24 16:00 152/109 H 09/04/24 16:00 152/109 H 09/04/24 16:00 152/109 H 09/04/24 16:00 152/109 H 09/04/24 16:00 152/109 H 09/04/24 16:00 152/109 H 09/04/24 16:00 152/109 H 09/04/24 16:00 152/109 H 09/04/24 16:00 110 H 25 H 98 09/04/24 15:51 117 H 31 H 97 09/04/24 15:33 103 H 27 H 100 09/04/24 15:30 158/109 H 09/04/24 15:30 158/109 H 09/04/24 15:30 158/109 H 09/04/24 15:30 158/109 H 09/04/24 15:30 158/109 H 09/04/24 15:30 158/109 H 09/04/24 15:18 95 H 24 09/04/24 15:09 95 H 26 H 96 09/04/24 14:51 90 27 H 97 09/04/24 14:45 63 25 H 98 09/04/24 14:45 89 18 94 09/04/24 14:45 36.8 C 89 18 122/80 94 09/04/24 14:45 36.8 C 89 18 122/80 94 09/04/24 14:39 85 26 H 95 09/04/24 14:31 121/81 09/04/24 14:31 121/81 09/04/24 14:31 121/81 09/04/24 14:31 121/81 09/04/24 14:31 121/81 09/04/24 14:31 121/81 09/04/24 14:31 121/81 09/04/24 14:31 121/81 09/04/24 14:31 121/81 O2 Del Method 09/04/24 17:21 09/04/24 17:18 09/04/24 17:00 09/04/24 16:57 09/04/24 16:51 09/04/24 16:45 09/04/24 16:30 09/04/24 16:30 09/04/24 16:30 09/04/24 16:30 09/04/24 16:30 09/04/24 16:30 09/04/24 16:30 09/04/24 16:30 09/04/24 16:27 09/04/24 16:24 09/04/24 16:12 09/04/24 16:11 09/04/24 16:00 09/04/24 16:00 09/04/24 16:00 09/04/24 16:00 09/04/24 16:00 09/04/24 16:00 09/04/24 16:00 09/04/24 16:00 09/04/24 16:00 09/04/24 16:00 09/04/24 16:00 09/04/24 15:51 09/04/24 15:33 09/04/24 15:30 09/04/24 15:30 09/04/24 15:30 09/04/24 15:30 09/04/24 15:30 09/04/24 15:30 09/04/24 15:18 09/04/24 15:09 09/04/24 14:51 09/04/24 14:45 09/04/24 14:45 Room Air 09/04/24 14:45 Room Air 09/04/24 14:45 Room Air 09/04/24 14:39 09/04/24 14:31 09/04/24 14:31 09/04/24 14:31 09/04/24 14:31 09/04/24 14:31 09/04/24 14:31 09/04/24 14:31 09/04/24 14:31 09/04/24 14:31 Laboratory Results CBC, coags, BMP, lactate, magnesium, LFTs, procalcitonin, UA, respiratory BioFire panel reviewed Diagnostic Findings CT angiogram chest and chest x-ray reviewed ECG Additional Comments: ECG on 09/04/2024 at 1734 with sinus tachycardia first-degree AV block, rate 112, no ischemic changes ECG on 09/04/2024 at 1850 with sinus tachycardia with first-degree AV block, rate 109, no ischemic changes Code Status & VTE Plan Code Status Full code VTE Prophylaxis Plan VTE Prophylaxis will be ordered: Yes PG Care Time/CCT Total # of Minutes Spent Total Time Spent with Patient: Total time spent is greater than 50% in coordination of care (as documented) at patient's floor/unit and/or counseling patient: Coding Level of Care Code 47078 INT INP/OBS CARE 375MIN Diagnoses Near syncope R55 Elevated serum creatinine R79.89 Tachycardia R00.0 BPH w urinary obs/LUTS N40.1; N13.8
[2024-09-04] MEDS: MoRPHine SULFATE 2 MG/ML CARP IV STA (19:13)
[2024-09-04] MEDS: SODIUM CHLORIDE 0.9% 500 ML IV ONE (19:13)
[2024-09-04] MEDS ORDERED: ONDANSETRON INJ 2 MG/ML 2 ML VIAL IV PRN (20:46)
[2024-09-04] MEDS ORDERED: POLYETHYLENE (MIRALAX) 17 GM PACK PO PRN (20:46)
[2024-09-04] MEDS: LACTATED RINGER'S 1,000 ML IV SCH (21:15)
[2024-09-04] MEDS: APIXABAN 5 MG TABLET PO SCH (21:35)
[2024-09-04] MEDS: traZODone HCL 100 MG TAB PO SCH (21:35)
[2024-09-04] MEDS: PRAVASTATIN SOD 20 MG TAB PO SCH (21:35)
[2024-09-04] MEDS: cefTRIAXone SODIUM 2,000 MG/50 ML BAG IV SCH (21:38)
[2024-09-05 07:00] LABS: Basophils # (auto) 0.02 K/uL (0.00-0.20); Basophils % (auto) 0.2 %; Eosinophils # (auto) 0.07 K/uL (0.00-0.50); Eosinophils % (auto) 0.8 %; Hematocrit (blood only) 34.7 % (42.0-52.0); Immature Granulocytes # (auto) 0.03 K/uL (0.01-0.20); Immature Granulocytes % (auto) 0.3 %; Lymphocytes % (auto) 5.7 %; Mean Corpuscular Hemoglobin 31.3 pg (25.0-34.0); Mean Corpuscular Hgb Conc 34.6 g/dL (32.0-36.0); Mean Corpuscular Volume 90.6 fL (80.0-100.0); Mean Platelet Volume 10.2 fL (9.4-12.4); Monocytes # (auto) 0.66 K/uL (0.11-0.59); Monocytes % (auto) 7.6 %; Neutrophils # (auto) 7.42 K/uL (1.40-6.50); Neutrophils % (auto) 85.4 %; Platelet Count 141 K/uL (130-400); RDW Coefficient of Variation 12.6 % (11.5-14.5); RDW Standard Deviation 41.4 fL (36.4-46.3); Red Blood Count 3.83 M/uL (4.70-6.10)
[2024-09-05 07:33] LABS: Folate (Folic Acid),Ser orPlas 12.25 ng/ml (>5.38)
[2024-09-05 07:34] LABS: Bilirubin,Total 0.5 mg/dl (0.2-1.0)
[2024-09-05 07:35] LABS: Albumin Globulin Ratio 1.5 (0.9-2); Albumin Level 3.5 gm/dl (3.4-5.0); BUN Creatinine Ratio 12.6 (10-20); Calcium 8.5 mg/dl (8.6-10.3); Creatinine Clr Calc Pharmacy 48.5 ml/min; Ferritin 195.8 ng/ml (8-388); Globulin 2.4 gm/dl (2.5-4.0); Magnesium 1.8 mg/dl (1.7-2.4); Potassium 4.4 mmol/L (3.5-5.1); Total Protein 5.9 gm/dl (6.0-8.3); Troponin I High Sensitivity 4.4 pg/ml (0-20)
[2024-09-05] MEDS ORDERED: PRAVASTATIN SOD 20 MG TAB PO SCH (09:00)
[2024-09-05] MEDS: LORATADINE 10 MG TAB PO SCH (09:03)
[2024-09-05] MEDS: lisinopril 10 MG TAB PO SCH (09:04)
[2024-09-05] MEDS: FLUTICASONE/VILANTEROL 100/25MCG 14 PUFFS/INHALER INH SCH (09:04)
[2024-09-05] MEDS: FLUTICASONE PROPIONATE NA SPR 16 GM BTL SCH (09:04)
[2024-09-05] MEDS: MONTELUKAST SODIUM 10 MG TABLET PO SCH (09:04)
--- NOTE | 2024-09-05 10:56 | XCELERA ---
[id number] [id number]
--- NOTE | 2024-09-05 12:04 | Electrocardiogram Report ---
Test Reason : Blood Pressure : */* mmHG Vent. Rate : 81 BPM Atrial Rate : 81 BPM P-R Int : 228 ms QRS Dur : 64 ms QT Int : 316 ms P-R-T Axes : 51 37 53 degrees QTcB Int : 367 ms Sinus rhythm with 1st degree A-V block Low voltage QRS Borderline ECG No previous ECGs available Confirmed by Garcia Feldman ([id number]) on 09/05/2024 12:03:58 PM Referred By: REFERRED SELF Confirmed By: Garcia Feldman
--- NOTE | 2024-09-05 12:11 | Electrocardiogram Report ---
Test Reason : Blood Pressure : */* mmHG Vent. Rate : 112 BPM Atrial Rate : 112 BPM P-R Int : 234 ms QRS Dur : 66 ms QT Int : 274 ms P-R-T Axes : 50 34 54 degrees QTcB Int : 374 ms Sinus tachycardia with 1st degree A-V block Otherwise normal ECG When compared with ECG of 04-Sep-2024 14:28, (unconfirmed) No significant change was found Confirmed by Garcia Feldman ([id number]) on 09/05/2024 12:11:00 PM Referred By: REFERRED SELF Confirmed By: Garcia Feldman
--- NOTE | 2024-09-05 12:16 | Electrocardiogram Report ---
Test Reason : Blood Pressure : */* mmHG Vent. Rate : 109 BPM Atrial Rate : 109 BPM P-R Int : 242 ms QRS Dur : 66 ms QT Int : 300 ms P-R-T Axes : 54 37 36 degrees QTcB Int : 404 ms Sinus tachycardia with 1st degree A-V block Otherwise normal ECG When compared with ECG of 04-Sep-2024 17:34, (unconfirmed) No significant change was found Confirmed by Garcia Feldman ([id number]) on 09/05/2024 12:16:31 PM Referred By: REFERRED SELF Confirmed By: Garcia Feldman
--- NOTE | 2024-09-05 14:27 | Hospitalist Progress Note ---
Date of Service September 05, 2024 Assessment & Plan (1) Near syncope: (2) UTI (urinary tract infection): (3) Elevated serum creatinine: (4) BPH w urinary obs/LUTS: Plan This patient is a 73-year-old male with a history of HTN, asthma, SHANNAN, excessive daytime drowsiness, diet-controlled DM2, insomnia, HLD, allergic rhinitis, BPH, who presents to the ER with acute onset of chills, nausea, emesis and lightheadedness. He reports he was sitting waiting for his car to be serviced at [place] when the symptoms began. He had to lay himself down on the ground and ambulance was called. Initially in the ER, his heart rate was in the 80s with a first-degree AV block but then he became tachycardic which was sinus. His blood pressures were actually mildly elevated he was afebrile. He did have a cystoscopy 2 days ago for BPH and was prescribed tamsulosin but has not yet started it. He reports he did not take any antibiotics before or after the cystoscopy procedure. He denies any worsening of his current lower urinary tract symptoms-he denies dysuria or hematuria, no abdominal pain. He denies headache or sore throat, no cough or chest pain but does feel at times like it is hard to breathe. He denies diarrhea, constipation, blood in the stool. He had nausea but no vomiting. He is admitted for further workup for presyncope, possible early sepsis with a /bacteremia source given recent cystoscopy. #Presyncope/chills/sinus tachycardia/nausea/possible early sepsis-no significant ECG abnormalities, trop neg x 2. Now with low grade fever, urinary frequency and urgency, and urine cx with pin point growth. Procalcitonin now way up to 36 which points towards Gram neg bacteremia. May be in early stages of sepsis given chills, tachycardia, some tachypnea. Could be bacteremia from recent cystoscopy. No events on tele. ECHO normal. 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 Pt has never been told he has CKD that he recalls. 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 Making urine. Mag low at 1.6 on arrival and replaced with 1 gram IV mag in ED. Mag now normal. Urinary frequency, urgency with normal PVR 75mL -dc IVFs -follow BMP -ok to continue home lisinopril #Paroxysmal atrial fibrillation- remains in NSR here -continue Eliquis -monitor on tele #HTN/HLD-no acute issues, BPs somewhat elevated on admission and now normal -continue home lisinopril, pravastatin #Asthma/allergic rhinitis-no acute issues but some SOB, no wheezing on exam -continue maintenance inhalers, albuterol prn -continue home claritin, flonase #Insomnia/SHANNAN/daytime somnolence -no acute issues, recently ran out of stimulant med -continue trazodone -continue CPAP #Diet-controlled DM2-no acute issues, not on meds at home. -check A1C in AM DVT prophylaxis-Eliquis Disposition-continued stay PCU Admission and Anticipated Discharge Date Admission Date: September 04, 2024 Subjective Feeling very well today, no concerns. Denies lightheadedness, abd pains, diarrhea. Had a low grade fever this AM. Is urinating q30 min. Bladder scan PVR only 75mL. Tele with SR 1st degree AVB, PVCs, rates 80-100s Physical Exam Constitutional: WD/WN, vitals as above Neck: trachea midline, no thyromegaly Respiratory: normal respiratory effort, lungs clear to auscultation Cardiovascular: RRR, no murmur, no edema Chest (Breasts): Chest: normal inspection of chest Gastrointestinal (Abdomen): normal bowel sounds, soft, nontender, no hepatosplenomegaly Musculoskeletal: Extremities: extremities normal to inspection; no cyanosis and no clubbing Skin: no rashes, warm and dry Neurologic: moves all extremities and awake; no focal motor deficits Psychiatric: A+Ox3, euthymic affect Lymphatic: no lymphedema Results & Data Results & Data Vital Signs (Past 12 Hours) Vital Signs Temp Pulse Pulse Resp BP Pulse Ox O2 Del Method 09/05/24 11:02 37 C 78 19 115/72 95 Room Air 09/05/24 07:15 37.6 C H 80 24 120/72 96 Room Air 09/05/24 06:58 83 Laboratory Results CBC, CMP, procalcitonin, B12, folate, iron studies, magnesium reviewed Blood and urine cx reviewed PG Care Time/CCT Total # of Minutes Spent Total Time Spent with Patient: Total time spent is greater than 50% in coordination of care (as documented) at patient's floor/unit and/or counseling patient: Coding Level of Care Code 98691 SUB INP/OBS CARE 2/35MIN Diagnoses Near syncope R55 UTI (urinary tract infection) N39.0 Elevated serum creatinine R79.89 BPH w urinary obs/LUTS N40.1; N13.8
[2024-09-05] MEDS: TAMSULOSIN HCL 0.4 MG CAP PO SCH (16:31)
[2024-09-05] MEDS: CYANOCOBALAMIN (B-12) 500 MCG TABLET PO SCH (16:31)
[2024-09-05] MEDS: ACETAMINOPHEN 325 MG TAB PO PRN (20:13)
[2024-09-06 07:46] VITALS: TEMP 98.1
[2024-09-06 09:01] LABS: Basophils # (auto) 0.01 K/uL (0.00-0.20); Basophils % (auto) 0.3 %; Eosinophils # (auto) 0.15 K/uL (0.00-0.50); Hematocrit (blood only) 35.3 % (42.0-52.0); Hemoglobin 12.1 g/dl (14.0-18.0); Lymphocytes # (auto) 0.55 K/uL (1.20-3.40); Lymphocytes % (auto) 14.6 %; Mean Corpuscular Hemoglobin 30.9 pg (25.0-34.0); Mean Corpuscular Hgb Conc 34.3 g/dL (32.0-36.0); Mean Corpuscular Volume 90.1 fL (80.0-100.0); Monocytes # (auto) 0.51 K/uL (0.11-0.59); Monocytes % (auto) 13.5 %; Neutrophils # (auto) 2.55 K/uL (1.40-6.50); Neutrophils % (auto) 67.6 %; Platelet Count 129 K/uL (130-400); RDW Coefficient of Variation 12.5 % (11.5-14.5); RDW Standard Deviation 40.9 fL (36.4-46.3); Red Blood Count 3.92 M/uL (4.70-6.10); White Blood Count 3.77 K/ul (4.8-10.8)
[2024-09-06 09:13] LABS: BUN Creatinine Ratio 13.3 (10-20); Calcium 8.8 mg/dl (8.6-10.3); Creatinine Clr Calc Pharmacy 50.7 ml/min
[2024-09-06 10:25] LABS: Estimated Average Glucose 120 mg/dl; Hemoglobin A1C 5.8 % (4.5-5.6)
[2024-09-06 10:50] VITALS: RESP 20
--- NOTE | 2024-09-06 12:04 | Discharge Summary ---
Discharge Summary Date of Service September 06, 2024 Principal Dx & Hospital Course #1 = Principal Diagnosis (1) Near syncope: (2) UTI (urinary tract infection): (3) Elevated serum creatinine: (4) BPH w urinary obs/LUTS: Plan This patient is a 73-year-old male with a history of HTN, asthma, SHANNAN, excessive daytime drowsiness, diet-controlled DM2, insomnia, HLD, allergic rhinitis, BPH, who presents to the ER with acute onset of chills, nausea, emesis and lightheadedness. He reports he was sitting waiting for his car to be serviced at [employer] when the symptoms began. He had to lay himself down on the ground and ambulance was called. Initially in the ER, his heart rate was in the 80s with a first-degree AV block but then he became tachycardic which was sinus. His blood pressures were actually mildly elevated he was afebrile. He did have a cystoscopy 2 days ago for BPH and was prescribed tamsulosin but has not yet started it. He reports he did not take any antibiotics before or after the cystoscopy procedure. He denies any worsening of his current lower urinary tract symptoms-he denies dysuria or hematuria, no abdominal pain. He denies headache or sore throat, no cough or chest pain but does feel at times like it is hard to breathe. He denies diarrhea, constipation, blood in the stool. He had nausea but no vomiting. He is admitted for further workup for presyncope, possible early sepsis with a /bacteremia source given recent cystoscopy. #Presyncope/chills/sinus tachycardia/nausea/possible early sepsis-no significant ECG abnormalities, trop neg x 2. Now with low grade fever on hospital day #1 and 2, urinary frequency and urgency, and urine cx with mixed celso. Procalcitonin jumped way up to 36 which points towards Gram neg bacteremia. Blood cultures remain no growth to date at the time of discharge, but likely was in early stages of sepsis given chills, tachycardia, some tachypnea. Could be transient bacteremia from recent cystoscopy. No events on tele. ECHO normal. No further symptoms and feeling much better on empiric ceftriaxone -Discharged home on empiric Augmentin 875/125 mg p.o. 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 Pt has never been told he has CKD that he recalls. 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 Making urine. Mag low at 1.6 on arrival and replaced with 1 gram IV mag in ED. Mag now normal. Urinary frequency, urgency with normal PVR 75mL could be from UTI -ok to continue home lisinopril -Follow-up with PCP and/or nephrology as an outpatient for CKD stage III #Anemia-low normal vitamin B12, normal iron studies and folate, TSH. Could be anemia of chronic renal disease -Replaced with vitamin B12 1000 mcg p.o. once daily -Follow CBC as an outpatient #Paroxysmal atrial fibrillation- remains in NSR here -continue Eliquis #HTN/HLD-no acute issues, BPs somewhat elevated on admission and now normal -continue home lisinopril, pravastatin #Asthma/allergic rhinitis-no acute issues but some SOB, no wheezing on exam -continue maintenance inhalers, albuterol prn -continue home claritin, flonase #Insomnia/SHANNAN/daytime somnolence -no acute issues, recently ran out of stimulant med -continue trazodone -continue CPAP at bedtime #Diet-controlled DM2-no acute issues, not on meds at home. Hgb A1c here in prediabetes range at 5.8% -Follow-up PCP DVT prophylaxis-Elipaulette Disposition-stable for discharge to home Notes For Next Care Provider Follow-up on blood cultures after discharge Medication Changes From Visit Added Augmentin 875/125 mg p.o. twice daily x 4 more days Added vitamin B12 1000 mcg p.o. once daily Admission HPI Per Admitting Provider This patient is a 73-year-old male with a history of HTN, asthma, SHANNAN, excessive daytime drowsiness, diet-controlled DM2, insomnia, HLD, allergic rhinitis, BPH, who presents to the ER with acute onset of chills, nausea, emesis and lightheadedness. He reports he was sitting waiting for his car to be serviced at [employer] when the symptoms began. He had to lay himself down on the ground and ambulance was called. Initially in the ER, his heart rate was in the 80s with a first-degree AV block but then he became tachycardic which was sinus. His blood pressures were actually mildly elevated he was afebrile. He did have a cystoscopy 2 days ago for BPH and was prescribed tamsulosin but has not yet started it. He reports he did not take any antibiotics before or after the cystoscopy procedure. He denies any worsening of his current lower urinary tract symptoms-he denies dysuria or hematuria, no abdominal pain. He denies headache or sore throat, no cough or chest pain but does feel at times like it is hard to breathe. He denies diarrhea, constipation, blood in the stool. He had nausea but no vomiting. In the ER, the ECG was without ischemic changes, his magnesium was mildly low and this was replaced. His UA showed RBCs but no other signs of infection. He was given IV cefepime, blood cultures were drawn, procalcitonin was elevated, he was given IV Zofran and IV magnesium. His troponin was negative and his creatinine was elevated at 1.65. He is unaware of any history of CKD. He will be admitted for further workup for presyncope, possible early sepsis with a /bacteremia source given recent cystoscopy. Discharge Exam Constitutional WD/WN, vitals as above Neck trachea midline, no thyromegaly Respiratory normal respiratory effort, lungs clear to auscultation Cardiovascular RRR, no murmur, no edema Chest (Breasts) Chest: normal inspection of chest Gastrointestinal (Abdomen) normal bowel sounds, soft, nontender, no hepatosplenomegaly Musculoskeletal Extremities: extremities normal to inspection; no cyanosis and no clubbing Skin no rashes, warm and dry Neurologic moves all extremities and awake; no focal motor deficits Psychiatric A+Ox3, euthymic affect Lymphatic no lymphedema Discharge Plan Discharge Items Patient Disposition: Home - Self-Care Reason For Visit: PRESYNCOPE Discharge Diagnosis: Early sepsis, suspect UTI/transient bacteremia Presyncope Condition on Discharge: Fair Activity: Resume your previous activity Non-emergency contact: Primary Care Provider Call non-emergency contact if: you have any medication questions, your symptoms worsen, you have a fever and your temperature is above 101 Follow-up/Referrals: Gabriele Adams, [Primary Care Provider] - Diet: Heart Healthy Addtl Attending Provider Instructions: You are admitted with chills and low-grade fevers after having a cystoscopy. This caused you to feel lightheaded. You were treated with antibiotics and had improvement. You will be sent home with a course of antibiotics to complete. The blood cultures are not finalized at the time of discharge. If a bacteria grows out of the blood cultures that is resistant to the antibiotic you are on, you will be contacted. Please follow-up with urology as planned. Please follow-up with your primary care physician within 1 to 2 weeks after discharge. Pending Studies at Discharge: Yes (Blood cultures) Stand-Alone Forms: [facility], Smoking Cessation Medications and DC Order Prescriptions: New cyanocobalamin (vitamin B-12) 1,000 mcg capsule 1,000 mcg PO DAILY Qty: 30 0RF Rx Instructions: [id number] amoxicillin-pot clavulanate 875-125 mg tablet 1 tab PO BID Qty: 8 0RF tamsulosin 0.4 mg Capsule 0.4 mg PO HS Qty: 30 0RF Continued Eliquis 5 mg tablet 5 mg PO BID 90 Days Qty: 180 3RF ergocalciferol (vitamin D2) 1,250 mcg (50,000 unit) capsule 1,250 mcg PO Q7D 90 Days Qty: 13 3RF lisinopril 10 mg tablet 10 mg PO DAILY Qty: 90 3RF Dulera 50-5 mcg/actuation HFA aerosol inhaler 2 puff inhalation Q12H 90 Days Qty: 39 3RF montelukast 10 mg tablet 10 mg PO DAILY Qty: 90 3RF pravastatin 20 mg tablet 20 mg PO DAILY Qty: 90 3RF trazodone 100 mg tablet 100 mg PO DAILY Qty: 90 3RF fluticasone propionate [Flonase Allergy Relief] 50 mcg/actuation spray,suspension 2 spray intranasal DAILY Qty: 16 1RF Rx Instructions: administer into each nostril 2 puffs each day for six weeks. Allergy Relief (loratadine) 10 mg capsule 10 mg PO UD Rx Instructions: 10 mg po daily. pt isnt sure if this medication solriamfetol 75 mg tablet 75 mg PO UD Rx Instructions: 75 mg po daily. Per pt, he ran out and couldnt get a refill Discharge Orders: Discharge Order (Routine); Ordered 09/06/24 Ordered By: Corin Ash Admission Data Admit Date/Time: 09/04/24 18:51 Attending Provider: Corin Ash Admit Provider: Corin Ash Primary Care Provider: Gabriele Adams Other Providers: Jeremiah Haney Hospital Stay Data Consultations 09/04/24 18:25 ED Decision to Admit Stat Diagnostic Imagining Performed 09/04/24 17:37 CT angio chest PE protocol Stat Echocardiogram Pending Results Patient Have Any Pending Studies at Discharge: Yes (Blood cultures) Discharge Instructions Given to Patient (Per Discharging Provider) You are admitted with chills and low-grade fevers after having a cystoscopy. This caused you to feel lightheaded. You were treated with antibiotics and had improvement. You will be sent home with a course of antibiotics to complete. The blood cultures are not finalized at the time of discharge. If a bacteria grows out of the blood cultures that is resistant to the antibiotic you are on, you will be contacted. Please follow-up with urology as planned. Please follow-up with your primary care physician within 1 to 2 weeks after discharge. Total Time Total Time Spent Total Time Spent (In Minutes): 35 minutes Total Time Includes: Examination of the Patient, Discharge Planning and Medication Reconciliation Coding Level of Care Code 17280 INP/OBS DISCH >30 MIN Diagnoses Near syncope R55 UTI (urinary tract infection) N39.0 Elevated serum creatinine R79.89 BPH w urinary obs/LUTS N40.1; N13.8
[2024-09-06 16:11] VITALS: BP 116/64; PULSE 99; O2SAT 95
== END 2024-09-06 17:05 | disposition home or self-care (01) | DRG 872 ==
LOC: SUATTDRO → ED 14:16 → 2S 18:51